=== PATIENT | male | born 1935 | race Caucasian/White ===

== ENCOUNTER 2024-08-28 14:01 | Day surgery (SDC) | payer MEDICARE, OTHER, SELFPAY ==
[2024-08-28 14:17] VITALS: BMI 28.5
[2024-08-28 14:18] VITALS: BP 130/88; PULSE 86; RESP 17; TEMP 36.1; O2SAT 98
[2024-08-28] MEDS: LACTATED RINGERS 1000ML 1,000 ML 50 ML IV (14:27)
--- NOTE | 2024-08-28 16:00 | EXP.HP ---
History of Present Illness *Admission Date: 08/28/24 *History of present illness: Mr. Amaya is an 89-year-old gentleman with a history of choledocholithiasis as well as mild pyloric stenosis requiring dilation. He was last seen in my [place] office in 2018. He has had prior EGD with esophageal dilation secondary to dysphagia. The patient had been on misoprostol twice daily but this was eventually stopped. The patient does take omeprazole for reflux. He presently reports dysphagia to solid foods such as steaks and meats but this can also occur with liquids and even water. He does have a lot of heartburn and reflux and feels as if the omeprazole is not helping him presently. He does have some regurgitation of bile and sometimes food. He reports bloating without belching. He does have some gassiness. He reports regular bowel function without constipation or diarrhea. He does take Benefiber daily. He reports no melena, hematochezia or hematemesis. He has had no weight loss. He does report some early satiety and occasional nausea. He is not having significant abdominal pain. He feels as if his abdomen gets puffed up especially on the left side with some left-sided abdominal discomfort. He did have a colonoscopy in September 2016 and had pandiverticulosis and marked colonic redundancy. The cecal Was not well-visualized. His last EGD was 2017. His ERCP was in July 2017. [facility] Disclaimer: The information contained in this section may have been updated after the patient was seen, as this information can be updated by other users. Medical History Thyroid disease Hypertension Heart disease GERD with esophagitis Diverticular disease History of colon polyps History of blood clots Surgical History History of ankle surgery History of hernia surgery History of cholecystectomy H/O thyroidectomy History of prostate surgery H/O lumbar discectomy History of cataract surgery History of knee replacement Family History Other Family history non-contributory Social History Smoking Status: Former smoker alcohol intake: never substance use type: denies use current occupational status: retired Travel in the last 8 weeks?: None Have you lived/traveled outside [place] in past 30 days?: No Contact w/someone who lives/traveled outside US past 30 days?: No Exposure to someone with infectious disease in past 14 days?: No Do you have a fever (greater than 100.4 F or 38 C)?: No Have you tested positive for COVID-19?: No Exposed to someone with COVID-19 in past 14 days?: No Do you have a sore throat?: No Do you have a cough?: No Do you have any weakness?: No Do you have any diarrhea?: No Are you experiencing any unusual bleeding?: No Do you have any muscle aches/pain?: No Do you have any abdominal pain?: No Are you experiencing loss of taste or smell?: No Other Medical History Have you received the Pneumonia Vaccine: Yes Review of Systems Review of Systems Review of systems (narrative): Negative *Cardiovascular Comments: Negative *Gastrointestinal Comments: Negative *Genitourinary Comments: Negative *Musculoskeletal Comments: Negative *Neurologic Comments: Negative Meds Home Medications and Allergies Home Medications ?Medication ?Instructions ?Recorded ?Confirmed ?Type apixaban 5 mg tablet (Eliquis) 5 mg PO BID 08/01/24 08/28/24 History ezetimibe 10 mg tablet 10 mg PO DAILY 08/01/24 08/28/24 History levothyroxine 44 mcg capsule 44 mcg PO DAILY 08/01/24 08/28/24 History metoprolol succinate 25 mg 25 mg PO DAILY 08/01/24 08/28/24 History tablet,extended release 24 hr pravastatin 80 mg tablet 80 mg PO DAILY 08/01/24 08/28/24 History sertraline 50 mg tablet 50 mg PO DAILY 08/01/24 08/28/24 History New Prescriptions to Start Prescriptions: Allergies Allergy/AdvReac Type Severity Reaction Status Date / Time Sulfa (Sulfonamide Allergy Hives Verified 08/28/24 14:14 Antibiotics) narcotics AdvReac Nausea Uncoded 08/28/24 14:14 Exam Data for Last 24 hours Vital signs and Labs for Last 24 Hours: Temp Pulse Resp BP Pulse Ox O2 Del Method 97.0 F L 86 17 130/88 98 Room Air 08/28/24 14:18 08/28/24 14:18 08/28/24 14:18 08/28/24 14:18 08/28/24 14:18 08/28/24 14:18 I & O for Last 24 hours: Intake & Output 08/25/24 08/26/24 08/27/24 08/28/24 23:59 23:59 23:59 23:59 Weight 182 lb *Routine HEENT Exam Head: Present normocephalic Eye: Present EOMI and PERRL ENT: Present mucous membranes moist *Routine Neck Exam Neck: Present supple *Routine Respiratory Exam Respiratory: Present CTA bilaterally *Routine Cardiovascular Exam Cardiovascular: Present RRR *Routine Abdominal Exam Abdominal: Present soft and normoactive bowel sounds; Absent tenderness *Routine Rectal Exam Rectal:: deferred *Routine Genitalia Exam Genitalia:: deferred *Routine Extremities Exam Extremities: Absent cyanosis, clubbing or edema *Routine Skin Exam Skin: Present warm; Absent rash *Routine Neurological Exam Neurological: Present alert and oriented X3 Assessment and Plan *Assessment and plan (1) History of esophageal stricture: Status: Acute Category: Medical Code(s): Z87.19 - Personal history of other diseases of the digestive system (2) History of pyloric stenosis: Status: Acute Category: Medical Code(s): Z87.19 - Personal history of other diseases of the digestive system (3) Regurgitation of food: Status: Acute Category: Medical Code(s): R11.10 - Vomiting, unspecified (4) Heartburn: Status: Acute Category: Medical Code(s): R12 - Heartburn (5) Early satiety: Status: Acute Category: Medical Code(s): R68.81 - Early satiety (6) Bloating: Status: Acute Category: Medical Code(s): R14.0 - Abdominal distension (gaseous) (7) Dysphagia: Status: Acute Category: Medical Code(s): R13.10 - Dysphagia, unspecified Plan A/P: 1. Dysphagia, regurgitation of food, heartburn, early satiety and bloating is the preprocedural diagnosis. The patient does have a history of an esophageal stricture and mild pyloric stenosis which have been dilated previously. The patient will be anesthetized/sedated using MAC sedation. The patient has been seen and examined. Cardiac and lung assessment prior to the examination is stable. Proceed with planned diagnostic/therapeutic upper endoscopy.
--- NOTE | 2024-08-28 16:06 | P.PNANES_ITS ---
[facility] Disclaimer: The information contained in this section may have been updated after the patient was seen, as this information can be updated by other users. Medical History Thyroid disease Hypertension Heart disease GERD with esophagitis Diverticular disease History of colon polyps History of blood clots Surgical History History of ankle surgery History of hernia surgery History of cholecystectomy H/O thyroidectomy History of prostate surgery H/O lumbar discectomy History of cataract surgery History of knee replacement Family History Other Family history non-contributory Social History Smoking Status: Former smoker alcohol intake: never substance use type: denies use current occupational status: retired Travel in the last 8 weeks?: None Have you lived/traveled outside US in past 30 days?: No Contact w/someone who lives/traveled outside US past 30 days?: No Exposure to someone with infectious disease in past 14 days?: No Do you have a fever (greater than 100.4 F or 38 C)?: No Have you tested positive for COVID-19?: No Exposed to someone with COVID-19 in past 14 days?: No Do you have a sore throat?: No Do you have a cough?: No Do you have any weakness?: No Do you have any diarrhea?: No Are you experiencing any unusual bleeding?: No Do you have any muscle aches/pain?: No Do you have any abdominal pain?: No Are you experiencing loss of taste or smell?: No [facility] Anesthesia Checklist Patient Identification Patient Identification: Arm Band Structural Data Admitted From: Home Planned Operative Procedure/s: EGD Consent for Planned Operative Procedure(s) Verified: Yes Verified Documents: Surgical Consent and History and Physical NPO Status Verified Time NPO: 00:00 Additional verifications Anesthesia Reactions: No Airway Assessment Mallampati Score:: Class II C-Spine Mobility Assessed: Yes TMJ Mobility Assessed: Yes Dentition: Edentulous Neurological Assessment Level of Consciousness: Awake, Alert and Appropriate Anesthesia Plan Anesthesia Risk discussed: Yes Anesthesia Plan: Verified ASA Class: III Anesthesia Type: MAC
--- NOTE | 2024-08-28 16:08 | P.PCN_ITS ---
[facility] Procedure Note Date: 08/28/24 Time: 16:17 Procedure Note:: Upper Endoscopy Procedure Report: Esophagogastroduodenoscopy with cold biopsies and TTS balloon dilation Endoscopost: Yobani Kerr II, MD Referring Physician: Aaron Camargo MD Date of Procedure: August 28, 2024 Equipment: Olympus GIF 190 standard upper endoscope Sedation: MAC sedation Indications: Mr. Amaya is an 89-year-old gentleman who is here for diagnostic/therapeutic upper endoscopy. He does have a history of choledocholithiasis as well as mild pyloric stenosis requiring dilation. He was last seen in my [place] office in 2017. He has had prior EGD with esophageal dilation secondary to dysphagia. The patient had been on misoprostol twice daily but this was eventually stopped. The patient does take omeprazole for reflux. He presently reports dysphagia to solid foods such as steaks and meats but this can also occur with liquids and even water. He does have a lot of heartburn and reflux and feels as if the omeprazole is not helping him presently. He does have some regurgitation of bile and sometimes food. He reports bloating without belching. He does have some gassiness. He reports regular bowel function without constipation or diarrhea. He does take Benefiber daily. He reports no melena, hematochezia or hematemesis. He has had no weight loss. He does report some early satiety and occasional nausea. He is not having significant abdominal pain. He feels as if his abdomen gets puffed up especially on the left side with some left-sided abdominal discomfort. He did have a colonoscopy in September 2016 and had pandiverticulosis and marked colonic redundancy. The cecal Was not well-visualized. His last EGD was 2017. His ERCP was in July 2017. Procedure: Prior to the procedure, a history and physical exam was performed, and patient's medications and allergies were reviewed. The risks, benefits and alternatives of the sedation and procedure were discussed with the patient. All questions were answered and informed consent was obtained. The patient was brought to the procedure room. Patient identification and proposed procedure were verified by the physician and the nurse. The patient was placed in a left lateral decubitus position and the scope was passed under direct vision. Throughout the procedure, the patient's blood pressure, pulse, and oxygen saturations were monitored continuously. The upper GI endoscopy was accomplished without difficulty. The patient tolerated the procedure well. Findings: The scope was passed directly into the upper esophagus and advanced to the fourth portion of duodenum and proximal jejunum. The proximal jejunum, post bulbar duodenum and duodenal bulb were normal with normal mucosa and conniventes. A cold biopsy was taken in the second/third portion of duodenum for disaccharidase assay. The scope was withdrawn through a slightly deformed bulb and mildly stenotic pyloric channel into the stomach. There was some linear reactive gastropathy of the antrum. The body and fundus of the stomach were normal. Cold biopsies were taken along the lesser curvature for H. pylori. Upon retroflexion there was a 3 cm hiatal hernia. The pyloric channel was dilated gently from 12 to 15 mm with a wire-guided TTS hydrostatic balloon. The scope was then withdrawn into the esophagus. There was some distal fibrosis/distal fibrotic ring. Notably there were very strong tertiary contractions and increased esophageal luminal diameter suggestive of marked esophageal dysmotility. There is some reduced relaxation of the LES. The entire esophagus was dilated from 18 to 20 mm with a TTS hydrostatic balloon with shattering of the distal fibrotic ring. There was also some resistance at the cricopharyngeus. The remainder of the esophageal mucosa was normal. Impression: 1. 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 Linear reactive gastropathy of antrum 5. Mild pyloric stenosis status post dilation to 15 mm Plan: I will follow-up the biopsies and disaccharidase assay. If the patient's dysphagia persists, I would consider barium swallow and possibly manometry. I would also consider Botox injection empirically based upon his age.
[2024-08-28 16:18] VITALS: BP 109/70; PULSE 73; RESP 20; TEMP 36.1; O2SAT 93
[2024-08-28 16:28] VITALS: BP 112/67; PULSE 77; RESP 20; O2SAT 95
[2024-08-28 16:38] VITALS: BP 109/67; PULSE 83; RESP 20; O2SAT 97
[2024-08-28 16:48] VITALS: BP 113/73; PULSE 75; RESP 20; TEMP 36.1; O2SAT 95
[2024-08-31 15:20] LABS: Interpretation Notes (.); Lactase 3.25 (>/= 14.0); Maltase 59.4 (>/= 110.0); Palatinase 2.78 (>/= 8.5); Reference Notes (.); Sucrase 11.6 (>/= 25.0)
== END 2024-08-28 16:50 | disposition home or self-care (01) ==
PROVIDERS: PCP Family Medicine; Visit Provider Internal Medicine Gastroenterology
PROC: 0DJ08ZZ Inspection of Upper Intestinal Tract, Via Natural or Artificial Opening Endoscopic (ICD-10-PCS; CPT 43239; principal; 2024-08-28 15:00)
DX: K22.2 Esophageal obstruction (principal); R13.10 Dysphagia, unspecified; I10 Essential (primary) hypertension; K31.89 Other diseases of stomach and duodenum; K44.9 Diaphragmatic hernia without obstruction or gangrene; K22.4 Dyskinesia of esophagus; K31.1 Adult hypertrophic pyloric stenosis; M62.838 Other muscle spasm; K29.50 Unspecified chronic gastritis without bleeding; E89.0 Postprocedural hypothyroidism; Z87.19 Personal history of other diseases of the digestive system; Z86.0100 Personal history of colon polyps, unspecified; Z90.49 Acquired absence of other specified parts of digestive tract; Z79.899 Other long term (current) drug therapy; Z87.891 Personal history of nicotine dependence; Z79.01 Long term (current) use of anticoagulants; Z79.890 Hormone replacement therapy; Z88.2 Allergy status to sulfonamides; Z88.5 Allergy status to narcotic agent
CPT/HCPCS: 43239; 43245; 43249; 82657; 88305; C1726; J2003; J2704; J7120